=== PATIENT | male | born 1970 | race African-American/Black ===

== ENCOUNTER 2025-04-19 08:38 | Outpatient (CLI) | payer OTHER, SELFPAY ==
--- OUTSIDE RECORDS SUMMARY | 2025-04-19 08:48 | XMS_ITS | Encounter Summary ---
Author Organization [facility] Address [address] [place] [address] Care Team Providers Care River Guide Name Role Phone Unavailable Primary Care Provider Unavailabl e Encounter Details Date Type Department Care Team (Late st Contact Info) Description 04/17/2025 External Device Data [place] ABSTRACTION Provider, Abstract NO ADDRESS ON FILE Social History Tobacco Use Types Packs/Day Years Used Date Smoking Tobacco: Never Smokeless Tobacco: Never Alcohol Use Standard Drinks/Week Comments Yes 0 (1 standard drink = 0.6 oz pur e alcohol) Sex and Gender Information Value Date Recorded Sex Assigned at Not on file Legal Sex Male 2:38 PM FUSE CUTTER Gender Identity Not on file Sexual Orientation Not on file documented as of this encounter Plan of Treatment Not on file documented as of this encounter Visit Diagnoses Not on filedocumented in this encounter
--- OUTSIDE RECORDS SUMMARY | 2025-04-19 08:48 | XMS_ITS | Clinical Summary ---
Author Organization [facility] Address [address] [place] [address] Care Team Providers Care Machine Folder Name Role Phone Seth Sin MD Primary Care Provider [phone] [phone] Allergies No known active allergies Medications metoprolol XL (Toprol XL) 50 mg extended release tablet Take 1 tablet (50 mg total) by mouth daily 2 Active irbesartan (AVAPRO) 300 mg tablet Take 1 tablet (300 mg total) by mouth daily 6 Active amLODIPine (NORVASC) 10 mg tablet Take 1 tablet (10 mg total) by mouth daily 2 Active aspirin 81 mg chewable tablet Take 1 tablet (81 mg total) by mouth daily Collaborating physician Joseph Montalvo MD 30 tablet 11 3 Active LORazepam (ATIVAN) 0.5 mg tablet Take 1 tablet (0.5 mg total) by mouth every 8 (eight) hours as needed for anxiety Collaborating physician Joseph Montalvo MD 15 tablet 3 Active Additional Information Patient not taking.Reported on 07/24/2024 albuterol HFA (PROVENTIL HFA,VENTOLIN HFA,PROAIR HFA) 90 mcg/actuation inhaler 4 Active atorvastatin (LIPITOR) 10 mg tablet Take 1 tablet (10 mg total) by mouth daily 3 Active folic acid (FOLVITE) 1 mg tablet 4 Active metFORMIN (GLUCOPHAGE) 500 mg tablet Take 1 tablet (500 mg total) by mouth 2 (two) times a day with meals Active Active Problems Problem Noted Date Diagnosed Date Family history of colon cancer 03/26/2025 History of colonic polyps 03/26/2025 Encounter for screening colonoscopy 03/26/2025 Near syncope 11/11/2022 Acute pain of left shoulder 11/11/2022 Encounters Date Type Department Care Team Description 03/26/2025 Telephone [facility] Gastroenterology at [place] [address] [facility] [address] [place] [phone] Carolina Duque MD from Last 3 Months Medical History Medical History Date Comments Diabetes mellitus (HCC) Family History Medical History Relation Name Comments Glaucoma Neg Hx Macular degeneration Neg Hx Social History Tobacco Use Types Packs/Day Years Used Date Smoking Tobacco: Never Tobacco Cessation:Counseling Given: Not Answered Personal Safety Answer Date Recorded Getting School Help Needed Not on file 11/30 Sex and Gender Information Value Date Recorded Sex Assigned at Not on file Legal Sex Male 1:00 PM ELECTRIC ARC FURNACE OPERATOR Gender Identity Not on file Sexual Orientation Not on file Obstetrics History Last Filed Vital Signs Vital Sign Reading Time Taken Comments Blood Pressure 144/80 11/11/2022 8:00 PM ELECTRIC ARC FURNACE OPERATOR Pulse 77 11/11/2022 8:00 PM ELECTRIC ARC FURNACE OPERATOR Temperature 36.8 C (98.2 F) 11/11/2022 8:00 PM ELECTRIC ARC FURNACE OPERATOR Respiratory Rate 16 11/11/2022 8:00 PM ELECTRIC ARC FURNACE OPERATOR Oxygen Saturation 100% 11/11/2022 8:00 PM ELECTRIC ARC FURNACE OPERATOR Inhaled Oxygen Concentration - - Weight 90.7 kg (200 lb) 11/11/2022 3:03 PM ELECTRIC ARC FURNACE OPERATOR Height 170.2 cm (5' 7) 11/11/2022 3:03 PM ELECTRIC ARC FURNACE OPERATOR Body Mass Index 31.32 11/11/2022 3:03 PM ELECTRIC ARC FURNACE OPERATOR Plan of Treatment Upcoming Encounters Date Type Department Care Team (Late st Contact Info) Description 10/28/2025 9:00 AM ELECTRIC ARC FURNACE OPERATOR Hospital Encounter [address] [address] Carolina Duque MD [address] [place] [address] [address] [place] [address] 10/28/2025 9:00 AM ELECTRIC ARC FURNACE OPERATOR - 10/28/2025 9:30 AM ELECTRIC ARC FURNACE OPERATOR Surgery [address] [address] KarCarolina ya MD [address] [place] [address] [place] [address] COLONOSCOPY Scheduled Procedures Name Priority Associated Diagnoses Date/Ti me COLONOSCOPY Family history of colon cancer History of colonic polyps Encounter for screening colonoscopy 10/28/2025 9:00 AM ELECTRIC ARC FURNACE OPERATOR Health Maintenance Due Date Last Done Comments Colon Cancer Screening-Colonoscopy 1969 Depression Screening 1969 Hepatitis C Screening 1969 Prostate Cancer Screening-PSA 1969 Regular Well Visit/Exam 18-64 12/09/1987 Pneumococcal vaccine <65 (1 of 2 - PCV) 1988 Zoster Vaccine (2 of 2) 09/16/2021 07/22/2021 Influenza Vaccine (#1) 2025 , 07/03/2014, 07/04/2013 DTaP/Tdap/Td Vaccine (4 - Td or Tdap) 05/24/2029 05/24/2019, 05/24/2014, 12/01/2013 Hepatitis B Screening Completed 10/17/2014 , 05/24/2014, 04/19/2014 Insurance [facility] [employer] Care Teams Machine Folder Relationship Specialty Start Date End Date Seth Sin MD [address] [place] [address] PCP - General Family Practice 03/25/25
--- OUTSIDE RECORDS SUMMARY | 2025-04-19 08:48 | XMS_ITS | Encounter Summary ---
Author Organization [facility] Address [address] [place] [address] Care Team Providers Care Soldering Technician Name Role Phone Unavailable Primary Care Provider [...] on file Legal Sex Male 2:38 PM BIRD SITTER Gender Identity Not on file Sexual Orientation Not on file documented as of this encounter Plan of Treatment Not on file documented as of this encounter Visit Diagnoses Not on filedocumented in this encounter
--- OUTSIDE RECORDS SUMMARY | 2025-04-19 08:48 | XMS_ITS | Data Portability ---
Author Organization [facility] ([facility] Address [address] [address] Assessment No assessment recorded. Plan of Treatment Reminders Order Date Submit Date Provider Last Modified By Organization Details Last Modified Time Details Appointments None record ed. Lab None record ed. Referral None record ed. Procedures None record ed. Surgeries None record ed. Imaging None record ed. Medication Orders None record ed. Patient TargetsNo targets recorded. Patient InstructionsNo instructions recorded. Reason for Referral None Reported. Procedures Surgical History Date Name Laterality Status Provider Name and Address Organization Details Recorded Time 08/15/2023 Sleep Study completed David Estevez [facility] 08/16/2023 23:10:11 04/18/2020 Sleep Study completed Jeff Pina [facility] 04/21/2020 13:10:53 Imaging Results None recorded. Procedure Notes None recorded. Medical Equipment None Reported. Medications Name Sig Start Date Stop Date Status Note LastModified by Organization Details LastModified Time amlodipine 10 mg tablet active Not Available Not Available No t Available irbesartan 300 mg tablet active Not Available Not Availabl e Not Available Vitals Date Recorded Body height Body mass index (BMI) Body weight Provider Name and Address Organization Details Last Updated DateTime 08/15/2023 170.18 cm 32.1 kg/m2 [address].[place] I [address] [facility] [address], [place], [address], [facility]/S[facility] 08/15/2023 10:53:22 Social History None recorded. Functional Status None recorded. Mental Status None recorded. Family History Nothing Reported. Medical History No medical history recorded. Past Encounters Encounter ID Performer Location Encounter Start Date Encounter Closed Date Diagnosis/Indication Diagnosis SNOMED-CT Code Diagnosis ICD10 Code Diagnosis Note [id number] [facility], [facility] (11) [id number] [address] 04/18/2020 11:56:18 04/21/2020 13:02:56 Obstructive sleep apnea of adult 9934873449 103 G47.33 [id number] [facility] (11) [id number] [address] 08/15/2023 10:47:09 08/16/2023 23:02:45 Obstructive sleep apnea of adult 6493928342 103 G47.33 [id number] [facility] (11) [id number] [address] 12/20/2023 15:01:50 12/20/2023 16:24:11 Obstructive sleep apnea of adult 5394252788 103 G47.33 [id number] [facility] (11) [id number] [address] 12/28/2023 12:50:18 12/28/2023 12:53:13 [id number] [facility] (11) [id number] [address] 01/23/2024 12:14:03 01/23/2024 12:29:37 [id number] [facility] (11) [id number] [address] 02/20/2024 11:07:51 02/20/2024 11:08:56 Health Concerns Section Related Observation LastModified by Organization Detai ls LastModified Time None Recorded Concern Status LastModified by Organization Details LastModified Time None Recorded Advance Directives Directive None Recorded Payers Insurance Date Sequence Insurance Name Policy Number Policy Dunn Covered Member ID Dunn Member ID Guarantor Name 12/06/2023 1 [facility] (O) [id number] N Gai Munoz [id number] [facility] Munoz 04/17/2025 1 [facility] Patricia Munoz [id number] Patricia Munoz 04/17/2025 1 *SELF PAY* [employer] quiñonez Munoz 06/21/2024 PAYMENT PLAN Patricia Munoz 12/06/2023 1 [employer] Patricia Munoz [id number] Patricia Munoz Notes Date Note Type Note Provider Name and Address Organization Details Recorded Time 08/15/2023 text/html HST SetupReporte d bypatient.HST set upHST Device Number 33; Demonstrated to patient how to set up Home Sleep Test Device. The patient was able to return demonstration with out difficulty.; The patient is returning the device the following morning. Ryder Harper MD [facility] [id number] [address] [place] [address], [place], [address], [facility] - C[facility]/K[facility] 08/17/2023 17:18:42 12/20/2023 text/html PAP SetupReporte d bypatient.The patient was set up [employer] Airsense 11 with SN# [id number] APAP with a pressure setting of; 5-14 cm H2O; The patient was fit with Nasal Mask; per patient request The patient states that the interface iscomfortable and not experiencing leaks.; Patient verbalizes understanding that there were other options for [employer] companies and has selected [facility].; Cleaning instructions were reviewed and provided to the patient.; Patient acknowledged understanding of their financial responsibility.; Patient verbalized understanding importance to use PAP therapy when ever sleeping (including naps) and failure to maintain miniumum adherence requirements of (70% usage/min 4 hours nightly) may result in increased financial responsibility.; Patient registered and entered into AirviewNotes:Pt came in very apprehensive about getting pap. Tech explained how pap works and the benefits, cleaning and different mask options. Tech also let pt know they can do self pay if the cost with insurance is too much for them. Pt was then excited to start pap. Pt tried the yates fx and the N30i SW cushion. Pt chose the N30i. - [facility] [address] [place] [address], [place], [address], [place] - [facility]H/S[facility] 12/20/2023 16:19:37 12/28/2023 text/html Called pt but flores d to leave vm. Asked pt to call back if he has questions/concerns. Download looks good except mask leak is a bit dana (46.5). [address] [facility], [place] [address], [place], [address], [place] - [facility]/SMSC 12/28/2023 12:52:50 02/20/2024 text/html Left pt a vm for 2 month check in. Pt is at 0% compliant, has not used the machine since December. - [facility] [address] [place] [address] [address], [place], [address], [place] - [facility]/SMSC 02/20/2024 11:10:11
--- OUTSIDE RECORDS SUMMARY | 2025-04-19 08:48 | XMS_ITS | Clinical Summary ---
Author Organization [facility] Address [address] [place] [address] Care Team Providers Care Leadership Recruiter Name Role Phone Unavailable Primary Care Provider Unavailabl e Allergies No known active allergies Medications Irbesartan (AVAPRO) 300 mg tablet TAKE 1 TABLET BY MOUTH EVERY NIGHT AT BEDTIME. 30 Tablet 3 11/11/2015 Active amLODIPine (NORVASC) 5 mg tablet TAKE 1 TABLET BY MOUTH EVERY DAY. 30 Tablet 1 11/13/2015 Active Active Problems Problem Noted Date Diagnosed Date Rhinitis 12/10/2014 Asthma 12/10/2014 Essential hypertension, benign 12/10/2014 Encounters Date Type Department Care Team Description 04/17/2025 External Device Data ST[facility] ABSTRACTION Provider, Abstract 04/17/2025 External Device Data ST[facility] ABSTRACTION Provider, Abstract 03/26/2025 External Device Data [facility] ABSTRACTION Provider, Abstract 03/19/2025 External Device Data ST[facility] ABSTRACTION Provider, Abstract 02/26/2025 External Device Data ST[facility] ABSTRACTION Provider, Abstract from Last 3 Months Immunizations Immunization Administration Dates Next Due (ADACEL/BOOSTRIX)(10 YR UP) TDAP VACCINE, 0.5ML, IM 12/01/2013 Influenza Seasonal Unspecified Formulation IM Family History Medical History Relation Name Comments Hypertension Mother Stroke Mother Relation Name Status Comments Father Alive Mother Alive Social History Tobacco Use Types Packs/Day Years Used Date Smoking Tobacco: Never Smokeless Tobacco: Never Alcohol Use Standard Drinks/Week Comments Yes 0 (1 standard drink = 0.6 oz pur e alcohol) Sex and Gender Information Value Date Recorded Sex Assigned at Not on file Legal Sex Male 2:38 PM PHOTOGRAPHER APPRENTICE LITHOGRAPHIC Gender Identity Not on file Sexual Orientation Not on file Last Filed Vital Signs Vital Sign Reading Time Taken Comments Blood Pressure 130/80 07/18/2015 1:00 PM CDT Pulse 72 07/18/2015 1:00 PM CDT Temperature 36.5 C (97.7 F) 07/18/2015 1:00 PM CDT Respiratory Rate 16 07/18/2015 1:00 PM CDT Oxygen Saturation 97% 05/02/2015 12:57 PM CDT Inhaled Oxygen Concentration - - Weight 84.6 kg (186 lb 6.4 oz) 07/18/2015 1:00 P M CDT Height 170.2 cm (5' 7) 07/18/2015 1:00 PM CDT Body Mass Index 29.19 07/18/2015 1:00 PM CDT Plan of Treatment Health Maintenance Due Date Last Done Comments HEPATITIS B VACCINES (1 of 3 - 19+ 3-dose series) 05/1989 COLORECTAL SCREENING 2014 Colorectal Cancer Screening 2014 FIT-DNA Q 3 years 2014 FIT/FOBT Q 1 year 2014 Flex Sig/CT Colonography Q 5 years 2014 ZOSTER VACCINE (1 of 2) 12/09/2019 DTAP/TDAP/TD VACCINES (2 - Td or Tdap) 12/02/2023 INFLUENZA VACCINE (#1) 2025 07/03/2014 Insurance [place] BLUE ACCESS/TRUE BLUE PPO [employer] MANAGED CHOICE [facility]
--- OUTSIDE RECORDS SUMMARY | 2025-04-19 08:48 | XMS_ITS | Referral Summary ---
Author Organization [facility] Address [address] [place] [address] Care Team Providers Care Highway Painter Helper Name Role Phone Seth Sin MD Primary Care Provider [phone] [phone] Encounters Date Type Department Care Team Description 03/26/2025 Telephone [facility] Gastroenterology [place] [address] [facility] [address] [place] [address] Carolina Duque MD from Last 3 Months Allergies No known active allergies Medications metoprolol [...] 11/11/2022 Acute pain of left shoulder 11/11/2022 Social History Tobacco Use Types Packs/Day Years Used Date Smoking Tobacco: Never Tobacco Cessation:Counseling Given: Not Answered Personal Safety Answer Date Recorded Getting School Help Needed Not on file 11/30 Sex and Gender Information Value Date Recorded Sex Assigned at Not on file Legal Sex Male 1:00 PM AOC PLANS INTELLIGENCE OFFICER Gender Identity Not on file Sexual Orientation Not on file Last Filed Vital Signs Vital Sign Reading Time Taken Comments Blood Pressure 144/80 11/11/2022 8:00 PM AOC PLANS INTELLIGENCE OFFICER Pulse 77 11/11/2022 8:00 PM AOC PLANS INTELLIGENCE OFFICER Temperature 36.8 C (98.2 F) 11/11/2022 8:00 PM AOC PLANS INTELLIGENCE OFFICER Respiratory Rate 16 11/11/2022 8:00 PM AOC PLANS INTELLIGENCE OFFICER Oxygen Saturation 100% 11/11/2022 8:00 PM AOC PLANS INTELLIGENCE OFFICER Inhaled Oxygen Concentration - - Weight 90.7 kg (200 lb) 11/11/2022 3:03 PM AOC PLANS INTELLIGENCE OFFICER Height 170.2 cm (5' 7) 11/11/2022 3:03 PM AOC PLANS INTELLIGENCE OFFICER Body Mass Index 31.32 11/11/2022 3:03 PM AOC PLANS INTELLIGENCE OFFICER Plan of Treatment Upcoming Encounters Date Type Department Care Team (Late st Contact Info) Description 10/28/2025 9:00 AM AOC PLANS INTELLIGENCE OFFICER Hospital Encounter [address] [address] Carolina Duque MD [address] [facility] [place] [address] 10/28/2025 9:00 AM AOC PLANS INTELLIGENCE OFFICER - 10/28/2025 9:30 AM AOC PLANS INTELLIGENCE OFFICER Surgery [address] [address] Carolina Duque MD [address] [facility] [facility] [place] [address] COLONOSCOPY Scheduled Procedures Name Priority Associated Diagnoses Date/Ti me COLONOSCOPY Family history of colon cancer History of colonic polyps Encounter for screening colonoscopy 10/28/2025 9:00 AM AOC PLANS INTELLIGENCE OFFICER Insurance [facility] Care Teams Highway Painter Helper Relationship Specialty Start Date End Date Seth Sin MD [address] [place] [address] PCP - General Family Practice 03/25/25
[2025-04-19 09:08] LABS: Hematocrit 37.1 % (42.0-52.0); Hemoglobin 13.0 g/dL (14.0-18.0); Immature Granulocyte Percent A 0.4 % (0-0.5); Lymphocytes Absolute Auto 1.31 K/mm3 (0.9-3.2); Mean Corpuscular HGB Conc 35.0 g/dl (32-36); Mean Corpuscular Hemoglobin 28.0 pg (26-34); Mean Corpuscular Volume 79.8 fl (80-100); Nucleated Red Blood Cells Absolute Auto 0.000 K/mm3 (0.0-0.012); Nucleated Red Blood Cells Perc 0.0 % (0.0-0.2); Platelet Count Result 279 k/mm3 (150-375); Red Blood Count 4.65 M/mm3 (4.6-6.20); White Blood Count 7.7 K/mm3 (4.5-10.0)
[2025-04-19 09:34] LABS: Alanine Aminotransferase 18 U/L (6-50); Albumin Level 4.3 g/dL (3.5-5.1); Alkaline Phosphatase 72 U/L (38-126); Anion Gap 12 mmol/L (4-12); Aspartate Amino Transferase 31 U/L (17-59); Bilirubin,Total 1.5 mg/dL (0.2-1.3); Blood Urea Nitrogen 18 mg/dL (9-20); Calcium 9.3 mg/dL (8.4-10.2); Carbon Dioxide 22 mmol/L (22-30); Chloride 104 mmol/L (98-107); Cholesterol 126 mg/dL (0-200); Estimated Glomerular Filt Rate > 60; Glucose 78 mg/dL (65-110); HDL Direct 41 mg/dL; Potassium 3.7 mmol/L (3.4-5.0); Sodium 138 mmol/L (137-145); Total Protein 7.8 g/dL (6.3-8.2); Triglycerides 73 mg/dL (<150)
[2025-04-19 10:09] LABS: Thyroid Stimulating Hormone 1.780 uIU/mL (0.465-4.680)
[2025-04-19 10:21] LABS: Hemoglobin A1C 5.3 % (<5.7)
[2025-04-19 10:29] LABS: Vitamin B12 > 1000.0 pg/mL (239-931)
[2025-04-19 10:43] LABS: MALB Creatinine Ratio 3.8 mg/g (0-30)
[2025-04-25 18:08] LABS: Testosterone, Total, LC/MS 361 ng/dL (.)
== END 2025-04-19 08:39 | disposition home or self-care (01) ==
PROVIDERS: PCP Family Medicine; Visit Provider Family Medicine
DX: E78.5 Hyperlipidemia, unspecified (principal); Z00.00 Encounter for general adult medical examination without abnormal findings; E11.9 Type 2 diabetes mellitus without complications; R53.83 Other fatigue; I10 Essential (primary) hypertension; J45.909 Unspecified asthma, uncomplicated; Z86.19 Personal history of other infectious and parasitic diseases
CPT/HCPCS: 36415; 80053; 80061; 82043; 82172; 82306; 82607; 83036; 84403; 84443; 85025

== ENCOUNTER 2025-07-23 14:23 | Outpatient (CLI) | payer OTHER, SELFPAY ==
--- OUTSIDE RECORDS SUMMARY | 2025-07-23 18:23 | XMS_ITS | Clinical Summary ---
Author Organization [facility] Address [address] [place] [address] Care Team Providers Care Sales Superintendent Name Role Phone Seth Sin MD Primary Care Provider [phone] [phone] Allergies No known active allergies Medications metoprolol [...] 11/11/2022 Acute pain of left shoulder 11/11/2022 Medical History Medical History Date Comments Diabetes mellitus Family History Medical History Relation Name Comments Glaucoma Neg Hx Macular degeneration Neg Hx Social History Tobacco Use Types Packs/Day Years Used Date Smoking Tobacco: Never Tobacco Cessation:Counseling Given: Not Answered Personal Safety Answer Date Recorded Getting School Help Needed Not on file 11/30 Sex and Gender Information Value Date Recorded Sex Assigned at Not on file Legal Sex Male 1:00 PM FULFILLMENT ASSOCIATE Gender Identity Not on file Sexual Orientation Not on file Obstetrics History Last Filed Vital Signs Vital Sign Reading Time Taken Comments Blood Pressure 144/80 11/11/2022 8:00 PM FULFILLMENT ASSOCIATE Pulse 77 11/11/2022 8:00 PM FULFILLMENT ASSOCIATE Temperature 36.8 C (98.2 F) 11/11/2022 8:00 PM FULFILLMENT ASSOCIATE Respiratory Rate 16 11/11/2022 8:00 PM FULFILLMENT ASSOCIATE Oxygen Saturation 100% 11/11/2022 8:00 PM FULFILLMENT ASSOCIATE Inhaled Oxygen Concentration - - Weight 90.7 kg (200 lb) 11/11/2022 3:03 PM FULFILLMENT ASSOCIATE Height 170.2 cm (5' 7) 11/11/2022 3:03 PM FULFILLMENT ASSOCIATE Body Mass Index 31.32 11/11/2022 3:03 PM FULFILLMENT ASSOCIATE Plan of Treatment Upcoming Encounters Date Type Department Care Team (Late st Contact Info) Description 10/28/2025 9:00 AM FULFILLMENT ASSOCIATE Hospital Encounter [address] [address] Carolina Duque MD [address] [place] [address] [address] [place] [address] 10/28/2025 9:00 AM FULFILLMENT ASSOCIATE - 10/28/2025 9:30 AM FULFILLMENT ASSOCIATE Surgery [address] [address] Carolina Duque MD [address] [place] [address] [place] [address] COLONOSCOPY Scheduled Procedures Name Priority Associated Diagnoses Date/Ti me COLONOSCOPY Family history of colon cancer History of colonic polyps Encounter for screening colonoscopy 10/28/2025 9:00 AM FULFILLMENT ASSOCIATE Health Maintenance Due Date Last Done Comments Colon Cancer Screening-Colonoscopy 1969 Depression Screening 1969 Hepatitis C Screening 1969 Prostate Cancer Screening-PSA 1969 Regular Well Visit/Exam 18-64 12/09/1987 Pneumococcal vaccine <65 (1 of 2 - PCV) 1988 Zoster Vaccine (2 of 2) 09/16/2021 07/22/2021 Influenza Vaccine (#1) 2025 1, 07/03/2014, 07/04/2013 DTaP/Tdap/Td Vaccine (4 - Td or Tdap) 05/24/2029 05/24/2019, 05/24/2014, 12/01/2013 Hepatitis B Screening Completed 10/17/2014 , 05/24/2014, 04/19/2014 Insurance [facility] Care Teams Sales Superintendent Relationship Specialty Start Date End Date Seth Sin MD [address] [place] [address] PCP - General Family Practice 03/25/25
--- OUTSIDE RECORDS SUMMARY | 2025-07-23 18:23 | XMS_ITS | Data Portability ---
Author Organization [facility] (11) Address [address] [address] Assessment No assessment recorded. Plan of Treatment [...] Time 08/15/2023 Sleep Study completed David Estevez [facility]/KV/SMS 08/16/2023 23:10:11 04/18/2020 Sleep Study completed Jeff Pina [facility]/KV/SMS 04/21/2020 13:10:53 Imaging Results None recorded. Procedure [...] Updated DateTime 08/15/2023 170.18 cm 32.1 kg/m2 32253.44 [place] I [id number] [facility] 100, [place], [address], [facility] CSI/KV[facility] 08/15/2023 10:53:22 Social History None recorded. Functional Status None recorded. Mental Status None recorded. Family History Nothing Reported. Medical History No medical history recorded. Past Encounters Encounter ID Performer Location Encounter Start Date Encounter Closed Date Diagnosis/Indication Diagnosis SNOMED-CT Code Diagnosis ICD10 Code Diagnosis IMO Codes Diagnosis Note [id number] [facility], [facility] CSI (11) [address] [address] 04/18/2020 11:56:18 04/21/2020 13:02:56 Obstructive sleep apnea of adult 1451398817 103 G47.33 [id number] CSI CSI (11) [address] [address] 08/15/2023 10:47:09 08/16/2023 23:02:45 Obstructive sleep apnea of adult 7331801521 103 G47.33 [id number] CSI CSI (11) [address]Kay[address] [address] 12/20/2023 15:01:50 12/20/2023 16:24:11 Obstructive sleep apnea of adult 2595950454 103 G47.33 [id number] C[facility] CSI (11) [address] [address] 12/28/2023 12:50:18 12/28/2023 12:53:13 [id number] CSI CSI (11) [address] [address] 01/23/2024 12:14:03 01/23/2024 12:29:37 [id number] CSI CSI (11) [address] [address] 02/20/2024 11:07:51 02/20/2024 11:08:56 Health Concerns Section Related Observation LastModified by Organization Detai ls LastModified Time None Recorded Concern Status LastModified by Organization Details LastModified Time None Recorded Advance Directives Directive None Recorded Payers Insurance Date Sequence Insurance Name Policy Number Policy Dunn Covered Member ID Dunn Member ID Guarantor Name 12/06/2023 1 [facility] ([facility]) [id number] N Gai Munoz [id number] [facility] Munoz 04/17/2025 1 [facility] ([facility]) [facility] Munoz [id number] [facility] Munoz 04/17/2025 1 *SELF PAY* German quiñonez Munoz 06/21/2024 PAYMENT PLAN Patricia Munoz 12/06/2023 1 [employer] Patricia Munoz [id number] Aptricia Munoz Notes Date Note Type Note Provider Name and Address Organization Details Recorded Time 08/15/2023 text/html HST SetupReporte d by PatientEquipment InstructionsFor hst set up, patient reportshst device number 33,demonstrated to patient how to set up home sleep test device. the patient was able to return demonstration with out difficulty., andthe patient is returning the device the following morning.. Ryder Harper MD [facility] [id number] [address] [place] [address], [address], [place] - CSI/KVH/SMSC 08/17/2023 17:18:42 12/20/2023 text/html PAP SetupReporte d by PatientPAP therapyFor the patient was set up on, patient reportsresmed airsense 11 with sn# [id number] apap with a pressure setting of,5-14 cm h2o,the patient was fit with nasal mask, andper patient request. For the patient states that the interface is, patient reportscomfortable and not experiencing leaks.,patient verbalizes understanding that there were other options for [employer] companies and has selected ranjit sleep.,cleaning instructions were reviewed and provided to the patient.,patient acknowledged understanding of their financial responsibility.,patient verbalized understanding importance to use pap therapy when ever sleeping (including naps) and failure to maintain miniumum adherence requirements of (70% usage/min 4 hours nightly) may result in increased financial responsibility., andpatient registered and entered into [employer] [place] [facility] [employer].Pt came in very apprehensive about getting pap. Tech explained how pap works and the benefits, cleaning and different mask options. Tech also let pt know they can do self pay if the cost with insurance is too much for them. Pt was then excited to start pap. Pt tried the yates fx and the N30i SW cushion. Pt chose the N30i. - SM CSI [address] [place] [address], [place], [address], [place] - CSI/KVH/SMSC 12/20/2023 16:19:37 12/28/2023 text/html Called pt but had to leave vm. Asked pt to call back if he has questions/concerns. Download looks good except mask leak is a bit dana (46.5). [facility], [facility] [address] [place] [address], [place], [address], [place] - CSI/KVH/SMSC 12/28/2023 12:52:50 02/20/2024 text/html Left pt a vm for 2 month check in. Pt is at 0% compliant, has not used the machine since December. - CSI [address] [facility] [address], [place], [address], [place] CSI/KVH/SMSC 02/20/2024 11:10:11
--- OUTSIDE RECORDS SUMMARY | 2025-07-23 18:23 | XMS_ITS | Clinical Summary ---
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
--- NOTE | 2025-08-12 16:02 | WPDHOLTEREM ---
Holter/Event Monitor Holter/Event Monitor Date of procedure: 07/23/25 Holter/Event Procedure: 3-7 Day Holter Monitor Indications: Fatigue Conclusion: 1. 7 days holter monitor on 07/23/25. 2. Underlying rhythm is sinus rhythm. HR rang 61-133 bpm; average HR 82 bpm. 3. There are rare premature supraventricular complexes. No supraventricular tachycardia. 4. There are rare premature ventricular complexes. No ventricular tachycardia. 5. No significant pauses greater than 3 seconds. 6. Patient reports 11 episodes of symptoms of chest pain, irregular beats, shortness of breath which demonstrate sinus rhythm, HR range 71-92 bpm with 7 episodes with PVC's.
== END 2025-07-23 14:24 | disposition home or self-care (01) ==
LOC: ANHCARD 14:27
PROVIDERS: PCP Family Medicine; Visit Provider Family Medicine
DX: I49.1 Atrial premature depolarization (principal); I49.3 Ventricular premature depolarization
CPT/HCPCS: 93242

== ENCOUNTER 2025-08-08 14:22 | Outpatient (CLI) | payer OTHER, SELFPAY ==
--- NOTE | ~2025-08-08 | XR_ITS ---
EXAMINATION: XR knee RT 3V, 08/08/2025 14:36 PIE CUTTER HISTORY: M25.569 - Pain in unspecified knee COMPARISON: No comparisons available. Findings: No acute fracture or malalignment. Moderate to severe tricompartmental degenerative changes most marked of the patellofemoral joint, small effusion, the patella appears high riding Soft tissues unremarkable. Impression: No acute fracture or malalignment. Reviewed, dictated and finalized at location P. CUTTER Impression: No acute fracture or malalignment.
== END 2025-08-08 14:23 | disposition home or self-care (01) ==
PROVIDERS: PCP Family Medicine; Visit Provider Family Medicine
DX: M25.561 Pain in right knee (principal)
CPT/HCPCS: 73562

== ENCOUNTER 2025-10-01 12:22 | Outpatient (CLI) | payer OTHER, SELFPAY ==
--- OUTSIDE RECORDS SUMMARY | 2025-10-01 12:43 | XMS_ITS | Data Portability ---
Author Organization [facility] (11) Address [address] [address] Assessment No assessment recorded. Plan of Treatment [...] Time 08/15/2023 Sleep Study completed David Estevez [facility]/KV/SMS 08/16/2023 23:10:11 04/18/2020 Sleep Study completed Jeff Pina [facility]/KV/SMS 04/21/2020 13:10:53 Imaging Results None recorded. [...] Updated DateTime 08/15/2023 170.18 cm 32.1 kg/m2 [address] [facility] [address], [place], [address], [facility]KV/[facility] 08/15/2023 10:53:22 Social History None recorded. Functional Status None recorded. Mental Status None recorded. Family History Nothing Reported. Medical History No medical history recorded. Past Encounters Encounter ID Performer Location Encounter Start Date Encounter Closed Date Diagnosis/Indication Diagnosis SNOMED-CT Code Diagnosis ICD10 Code Diagnosis IMO Codes Diagnosis Note [id number] [facility], [facility] CSI (11) [address] [address] 04/18/2020 11:56:18 04/21/2020 13:02:56 Obstructive sleep apnea of adult 6965761327 103 G47.33 [id number] CSI CSI (11) [address] [address] 08/15/2023 10:47:09 08/16/2023 23:02:45 Obstructive sleep apnea of adult 9974683732 103 G47.33 [id number] CSI CSI (11) [address]Kayla SANDS [address] [address] 12/20/2023 15:01:50 12/20/2023 16:24:11 Obstructive sleep apnea of adult 1078608205 103 G47.33 [id number] CSI CSI (11) [address] [address] 12/28/2023 12:50:18 12/28/2023 12:53:13 [id number] CSI CSI (11) [address] [address] 01/23/2024 12:14:03 01/23/2024 12:29:37 [id number] CSI CSI (11) [address] [address] 02/20/2024 11:07:51 02/20/2024 11:08:56 Health Concerns Section Related Observation LastModified by Organization Detai ls LastModified Time None Recorded Concern Status LastModified by Organization Details LastModified Time None Recorded Advance Directives Directive None Recorded Payers Insurance Date Sequence Insurance Name Policy Number Policy Dunn Covered Member ID Dunn Member ID Guarantor Name 12/06/2023 1 [facility] ([facility]) [id number] N Gai Munoz [id number] [facility] Munoz 04/17/2025 1 [facility] ([facility]) [facility] Munoz [id number] [facility] Munoz 04/17/2025 1 *SELF PAY* German quiñonez Munoz 06/21/2024 PAYMENT PLAN Patricia Munoz 12/06/2023 1 [employer] Patricia Munoz [id number] Patricia Munoz Notes Date Note Type Note Provider Name and Address Organization Details Recorded Time 08/15/2023 text/html HST SetupReporte d by PatientEquipment InstructionsFor hst set up, patient reportshst device number 33,demonstrated to patient how to set up home sleep test device. the patient was able to return demonstration with out difficulty., andthe patient is returning the device the following morning.. Ryder Harper MD [facility] [id number] [address] [place] [address], [address], [place] - CSI/KVH/SMSC 08/17/2023 17:18:42 12/20/2023 text/html PAP SetupReporte d by PatientPAP therapyFor the patient was set up on, patient reportsresmed airsense 11 with sn# [id number] apap with a pressure setting of,5-14 cm h2o,the patient was fit with nasal mask, andper patient request. For the patient states that the interface is, patient reportscomfortable and not experiencing leaks.,patient verbalizes understanding that there were other options for [facility] companies and has selected ranjit sleep.,cleaning instructions were reviewed and provided to the patient.,patient acknowledged understanding of their financial responsibility.,patient verbalized understanding importance to use pap therapy when ever sleeping (including naps) and failure to maintain miniumum adherence requirements of (70% usage/min 4 hours nightly) may result in increased financial responsibility., andpatient registered and entered into [employer].Pt came in very apprehensive about getting pap. [...] Pt chose the N30i. - SM [facility] [address] [place] [address], [place], [address], [place] - CSI/KVH/SMSC 12/20/2023 16:19:37 12/28/2023 text/html Called pt but had to leave vm. Asked pt to call back if he has questions/concerns. Download looks good except mask leak is a bit dana (46.5). [facility], [facility] [address] [place] [address] [address], [place], [address], [place] - CSI/KVH/SMSC 12/28/2023 12:52:50 02/20/2024 text/html Left pt a vm for 2 month check in. Pt is at 0% compliant, has not used the machine since December. - CSI [address] [facility] [address], [place], [address], [place] - CSI/KVH/SMSC 02/20/2024 11:10:11
--- OUTSIDE RECORDS SUMMARY | 2025-10-01 12:43 | XMS_ITS | Clinical Summary ---
Author Organization [facility] Address [address] [place] [address] Care Team Providers Care Cat Hooker Name Role Phone Seth Sin MD Primary Care Provider [phone] Allergies No known active allergies Medications metoprolol [...] Montalvo MD 30 tablet 11 3 Active Additional Information Patient not taking.Reported on 09/16/2025 LORazepam (ATIVAN) 0.5 mg tablet Take 1 tablet (0.5 mg total) by mouth every 8 (eight) hours as needed for anxiety Collaborating physician Joseph Montalvo MD 15 tablet 3 Active Additional Information Patient not taking.Reported on 09/16/2025 albuterol HFA (PROVENTIL HFA,VENTOLIN HFA,PROAIR HFA) 90 mcg/actuation inhaler 4 Active atorvastatin (LIPITOR) 10 mg tablet Take 1 tablet (10 mg total) by mouth daily 3 Active folic acid (FOLVITE) 1 mg tablet 4 Active metFORMIN (GLUCOPHAGE) 500 mg tablet Take 1 tablet (500 mg total) by mouth 2 (two) times a day with meals Active Accu-Chek Guide test strips strip 5 Active Accu-Chek Guide Glucose Meter misc 5 Active Accu-Chek Softclix Lancets lancets 5 Active Mounjaro 7.5 mg/0.5 mL pen injector injection Inject 0.5 mL (7.5 mg total) under the skin 5 Active Active Problems Problem Noted Date Diagnosed Date Family history of colon cancer 03/26/2025 History of colonic polyps 03/26/2025 Encounter for screening colonoscopy 03/26/2025 Near syncope 11/11/2022 Acute pain of left shoulder 11/11/2022 Encounters Date Type Department Care Team Description 09/16/2025 8:50 AM GAS APPLIANCE REPAIRER Ancillary Procedure [facility] Imaging at [address] [address] Right knee pain, unspecified chronicity 09/16/2025 8:40 AM GAS APPLIANCE REPAIRER Ancillary Procedure [facility] Imaging at [address] [address] Right knee pain, unspecified chronicity 09/16/2025 8:30 AM GAS APPLIANCE REPAIRER Office Visit [facility]opedic [facility] Sports Medicine [address] [place] [address] Chava Juarez PA Patellar instability of right knee (Primary Dx) 09/16/2025 Orders Only [facility] [address] [place] [address] Chava Juarez PA Patellar instability of right knee (Primary Dx) 08/05/2025 Telephone [facility] Gastroenterology at [address] [place] [address] Carolin Verma from Last 3 Months Medical History Medical History Date Comments Diabetes mellitus Family History Medical History Relation Name Comments Glaucoma Neg Hx Macular degeneration Neg Hx Social History Tobacco Use Types Packs/Day Years Used Date Smoking Tobacco: Never Tobacco Cessation:Counseling Given: Not Answered Sex and Gender Information Value Date Recorded Sex Assigned at Not on file Legal Sex Male 1:00 PM GAS APPLIANCE REPAIRER Gender Identity Not on file Sexual Orientation Not on file Last Filed Vital Signs Vital Sign Reading Time Taken Comments Blood Pressure 151/96 09/16/2025 8:54 AM GAS APPLIANCE REPAIRER Pulse 84 09/16/2025 8:54 AM GAS APPLIANCE REPAIRER Temperature 36.8 C (98.2 F) 11/11/2022 8:00 PM GAS APPLIANCE REPAIRER Respiratory Rate 16 11/11/2022 8:00 PM GAS APPLIANCE REPAIRER Oxygen Saturation 100% 11/11/2022 8:00 PM GAS APPLIANCE REPAIRER Inhaled Oxygen Concentration - - Weight 73.4 kg (161 lb 12.8 oz) 09/16/2025 8:54 AM GAS APPLIANCE REPAIRER Height 170.2 cm (5' 7) 09/16/2025 8:54 AM GAS APPLIANCE REPAIRER Body Mass Index 25.34 09/16/2025 8:54 AM GAS APPLIANCE REPAIRER Plan of Treatment Upcoming Encounters Date Type Department Care Team (Late st Contact Info) Description 12/16/2025 12:56 PM CDT Hospital Encounter [address] [address] Carolina Duque MD [address] [place] [address] DR ANGELO [address] [place] [address] 12/16/2025 12:56 PM CDT - 12/16/2025 1:26 PM CDT Surgery [address] [address] Carolina Duque MD [address] [place] [address] DR ANGELO [address] [place] [address] [address] COLONOSCOPY Scheduled Procedures Name Priority Associated Diagnoses Date/Ti me COLONOSCOPY Family history of colon cancer History of colonic polyps Encounter for screening colonoscopy 12/16/2025 12:56 PM CDT Health Maintenance Due Date Last Done Comments Colon Cancer Screening-Colonoscopy 1969 Depression Screening 1969 Hepatitis C Screening 1969 Prostate Cancer Screening-PSA 1969 Regular Well Visit/Exam 18-64 12/09/1987 Pneumococcal vaccine <65 (1 of 2 - PCV) 1988 Zoster Vaccine (1 of 2) 12/09/2019 Influenza Vaccine (#1) 2025 07/03/2014, 2012 DTaP/Tdap/Td Vaccine (4 - Td or Tdap) 05/24/2029 05/24/2019, 05/24/2014, 12/01/2013 Hepatitis B Screening Completed 10/17/2014 , 05/24/2014, 04/19/2014 Procedures Procedure Name Priority Date/Time Associated Diagnosis Comments XR PELVIS 1 OR 2 VIEWS Schedule Routine, Read Routine (OP Routine) 09/16/2025 8:52 AM GAS APPLIANCE REPAIRER Right knee pain, unspecified chronicity XR KNEE RIGHT 4 OR MORE VIEWS Schedule Routine, Read Routine (OP Routine) 09/16/2025 8:52 AM GAS APPLIANCE REPAIRER Right knee pain, unspecified chronicity from Last 3 Months Results * XR Pelvis 1 or 2 Views (09/16/2025 8:52 AM GAS APPLIANCE REPAIRER) Anatomical Region Laterality Modality Body, Pelvis N/A Digital Radiogra phy Narrative 09/16/2025 8:58 AM GAS APPLIANCE REPAIRER A weight-bearing AP view of the pelvis taken today in the office demonstrate no evidence of fracture or acute bony abnormality . There are no bone lesions noted. There are no radiopaque foreign bodies. There are minimal degenerative changes noted in the femoral acetabular joints. There are no CAM or pincer lesions noted. Chava DOWNEY IMG XR PROCEDURES Final Res ult * XR Knee Right 4 or More Views (09/16/2025 8:52 AM GAS APPLIANCE REPAIRER) Anatomical Region Laterality Modality Lower Extremities, Knee Right Digital Radiography Narrative 09/16/2025 8:57 AM GAS APPLIANCE REPAIRER Four views of the right knee are negative for acute fracture dislocation or osseous lesion. Mild to moderate arthritic changes are noted throughout the knee with predominant changes noted in the patellofemoral and lateral compartments. Small osteophytes noted in the lateral compartment with more predominant osteophytes noted patellofemoral compartment. Chava DOWNEY IMG XR PROCEDURES Final Res ult from Last 3 Months Insurance [facility] [facility] Care Teams Cat Hooker Relationship Specialty Start Date End Date Seth Sin MD [address] [place] [address] PCP - General Family Practice 03/25/25
--- OUTSIDE RECORDS SUMMARY | 2025-10-01 12:43 | XMS_ITS | Clinical Summary ---
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 BLUE ACCESS/TRUE BLUE PPO [employer] MANAGED CHOICE [facility]
[2025-10-01 13:08] LABS: Hemoglobin A1C 4.9 % (<5.7)
[2025-10-01 13:12] LABS: Iron 80 ug/dL (49-181)
[2025-10-01 13:13] LABS: Alanine Aminotransferase 11 U/L (6-50); Albumin Level 4.3 g/dL (3.5-5.1); Alkaline Phosphatase 72 U/L (38-126); Anion Gap 6 mmol/L (4-12); Aspartate Amino Transferase 26 U/L (17-59); Bilirubin,Total 2.0 mg/dL (0.2-1.3); Blood Urea Nitrogen 17 mg/dL (9-20); Calcium 9.4 mg/dL (8.4-10.2); Carbon Dioxide 30 mmol/L (22-30); Chloride 102 mmol/L (98-107); Cholesterol 189 mg/dL (0-200); Estimated Glomerular Filt Rate > 60; Glucose 87 mg/dL (65-110); HDL Direct 49 mg/dL; Potassium 4.0 mmol/L (3.4-5.0); Sodium 138 mmol/L (137-145); Total Protein 7.9 g/dL (6.3-8.2); Triglycerides 89 mg/dL (<150)
[2025-10-01 13:19] LABS: MALB Creatinine Ratio 4.6 mg/g (0-30)
[2025-10-01 13:22] LABS: Percent Iron Saturation 29 % (20-50)
[2025-10-01 13:54] LABS: Ferritin 97.80 ng/mL (11.1-264)
[2025-10-01 14:07] LABS: Vitamin B12 999.0 pg/mL (239-931)
[2025-10-02 23:07] LABS: Free Testosterone (Direct) 6.2 pg/mL (7.2-24.0)
== END 2025-10-01 12:23 | disposition home or self-care (01) ==
PROVIDERS: PCP Family Medicine; Visit Provider Family Medicine
DX: S83.006A Unspecified dislocation of unspecified patella, initial encounter (principal); X58.XXXA Exposure to other specified factors, initial encounter; I10 Essential (primary) hypertension; E11.9 Type 2 diabetes mellitus without complications; R53.83 Other fatigue
CPT/HCPCS: 36415; 80053; 80061; 82043; 82607; 82728; 83036; 83540; 83550; 84402; 84403